=== PATIENT | female | born 1995 | race Caucasian/White ===

== ENCOUNTER 2025-02-08 07:13 | Emergency (ER) | payer OTHER ==
[~2025-02-08] VITALS: Ht 170.2 cm; Wt 61.2 kg
[~2025-02-08 07:13] MED LIST: DOXY100T2 PO; LEVO500T90 PO; NITR-84 PO
[2025-02-08 08:26] LABS: BASOPHILS % (AUTO) 0.2 % (0.0-2.0); EOSINOPHILS # (AUTO) 0.1 K/uL (0.0-0.7); EOSINOPHILS % (AUTO) 1.2 % (0.0-7.0); HEMATOCRIT 28.1 % (31.2-41.9); HEMOGLOBIN 9.8 g/dL (10.9-14.3); LYMPHOCYTES # (AUTO) 1.2 K/uL (0.8-4.8); LYMPHOCYTES % (AUTO) 17.8 % (20.5-51.5); MEAN CORPUSCULAR HEMOGLOBIN 29.5 uug (24.7-32.8); MEAN CORPUSCULAR HGB CONC 35 g/dL (32.3-35.6); MEAN CORPUSCULAR VOLUME 84.8 fL (75.5-95.3); MONOCYTES # (AUTO) 0.8 K/uL (0.1-1.30); MONOCYTES % (AUTO) 11.8 % (0.0-11.0); NEUTROPHILS # (AUTO) 4.7 K/uL (1.8-8.9); PLATELET COUNT (AUTO) 294 K/uL (179-408); RED BLOOD CELL COUNT(AUTO) 3.31 MIL/uL (3.63-4.92); RED CELL DISTRIBUTION WIDTH 12.6 % (12.3-17.7); WHITE BLOOD COUNT (AUTO) 6.8 K/uL (3.8-11.8)
[2025-02-08 08:27] LABS: DIFFERENTIAL COMMENT 1
[2025-02-08 08:31] LABS: *BILIRUBIN,URIN 1+ (NEGATIVE); *BLOOD, URINE 3+ (NEGATIVE); *COLOR,URINE YELLOW (YELLOW); *KETONES,URINE NEGATIVE (NEGATIVE); *PROTEIN,URINE TRACE (NEGATIVE); LEUKOCYTE ESTERASE ,URINE NEGATIVE (NEGATIVE); NITRITE, URINE NEGATIVE (NEGATIVE); PH,URINE 5.5 (5.0-8.0); UGLUCOSE NEGATIVE (NEGATIVE)
[2025-02-08 08:32] LABS: CALCIUM 9.1 mg/dL (8.5-10.1); CARBON DIOXIDE 32 mmol/L (21-32); CHLORIDE 102 mmol/L (98-107); CREATININE 0.5 mg/dL (0.6-1.3); GLUCOSE 91 mg/dL (74-106); POTASSIUM 3.6 mmol/L (3.5-5.1); SODIUM SERUM 141 mmol/L (136-145); UREA NITROGEN, BLOOD 9 mg/dL (7-18)
[2025-02-08 08:33] LABS: *CLARITY,URINE SLIGHTLY HAZY (CLEAR); *URINE HCG, QUAL NEGATIVE (NEGATIVE)
[2025-02-08 08:34] LABS: BACTERIA,URINE FEW /HPF (NONE SEEN); RBC,URINE 50-80 /HPF (0-3); SQUAMOUS EPITHELIAL CELL,UR FEW /HPF (NONE SEEN); URINE AMORPHOUS URATE FEW /HPF; WBC,URINE 0-3 /HPF (0-3)
[2025-02-08 08:37] LABS: ALANINE AMINOTRANSFERASE 15 U/L (14-59); ALBUMIN 3.2 g/dL (3.4-5.0); ALKALINE PHOSPHATASE 89 U/L (50-136); ASPARTATE AMINOTRANSFERASE 19 U/L (15-37); BILIRUBIN,DIRECT 0.1 mg/dL (0.0-0.2); BILIRUBIN,TOTAL 0.2 mg/dL (0.2-1.0); TOTAL PROTEIN, SERUM 7.4 g/dL (6.4-8.2)
[2025-02-08 08:50] LABS: *AMPHETAMINE, URINE POSITIVE (NEGATIVE); *BARBITURATE, URINE NEGATIVE (NEGATIVE); *BENZODIAZEPINE, URINE NEGATIVE (NEGATIVE); *CANNABINOID, URINE NEGATIVE (NEGATIVE); *COCCAINE, URINE NEGATIVE (NEGATIVE); *OPIATE, URINE NEGATIVE (NEGATIVE); *PHENCYCLIDINE SCREEN,URINE NEGATIVE (NEGATIVE); FENTANYL, URINE POSITIVE (NEGATIVE)
[2025-02-08 09:52] LABS: IRON, SERUM 34 ug/dL (50-175)
[2025-02-08] MEDS ORDERED: BISA10SU61 RC (10:36)
[2025-02-08] MEDS ORDERED: BISA-79 PO (10:36)
[2025-02-08] MEDS ORDERED: FERR325T23 PO (10:36)
[2025-02-08] MEDS ORDERED: MAGNESIUM HYDROXIDE 30 ML LIQUID UDC ONE (10:38)
[2025-02-08] MEDS ORDERED: FLEET ENEMA 133 ML BOTTLE RC ONE (10:38)
[2025-02-08] MEDS ORDERED: BISACODYL 5 MG TABLET.DR PO ONE (10:39)
[2025-02-08] MEDS: MAGNESIUM HYDROXIDE 30 ML LIQUID UDC PO ONE (10:42)
[2025-02-08] MEDS: FLEET ENEMA 133 ML BOTTLE RC ONE (10:42)
[2025-02-08] MEDS: BISACODYL 5 MG TABLET.DR PO ONE (10:42)
[2025-02-08 10:57] VITALS: BP 113/68; O2SAT 99
== END 2025-02-08 10:58 | disposition home or self-care (01) ==
LOC: ER 07:13
DX: K59.00 Constipation, unspecified (principal); K02.9 Dental caries, unspecified; D50.9 Iron deficiency anemia, unspecified; F15.10 Other stimulant abuse, uncomplicated; F17.210 Nicotine dependence, cigarettes, uncomplicated; Z87.09 Personal history of other diseases of the respiratory system
CPT/HCPCS: 36415; 74021; 83550; 84703; 85025; A4606; A4663

== ENCOUNTER 2025-02-13 03:46 | Emergency (ER) | payer OTHER ==
[~2025-02-13] VITALS: Ht 170.2 cm; Wt 61.2 kg
[~2025-02-13 03:46] MED LIST changes: +BISA-79 PO; +BISA10SU61 RC; +FERR325T23 PO
[2025-02-13 03:53] VITALS: O2SAT 99
[2025-02-13 05:15] LABS: *BILIRUBIN,URIN NEGATIVE (NEGATIVE); *CLARITY,URINE CLEAR (CLEAR); *COLOR,URINE YELLOW (YELLOW); *KETONES,URINE TRACE (NEGATIVE); *PROTEIN,URINE TRACE (NEGATIVE); *UROBILINOGEN,URINE 0.2 E.U./dl (NORMAL); LEUKOCYTE ESTERASE ,URINE NEGATIVE (NEGATIVE); NITRITE, URINE NEGATIVE (NEGATIVE); PH,URINE 5.5 (5.0-8.0); UGLUCOSE NEGATIVE (NEGATIVE)
[2025-02-13 05:17] LABS: *BLOOD, URINE TRACE (NEGATIVE); BACTERIA,URINE NONE SEEN /HPF (NONE SEEN); SQUAMOUS EPITHELIAL CELL,UR MODERATE /HPF (NONE SEEN); WBC,URINE 0-3 /HPF (0-3)
[2025-02-13 05:18] LABS: *URINE HCG, QUAL NEGATIVE (NEGATIVE); MUCUS,URINE FEW /LPF (0-FEW)
== END 2025-02-13 05:19 | disposition left against medical advice (07) ==
LOC: ER 03:48
DX: R10.31 Right lower quadrant pain (principal); R10.32 Left lower quadrant pain; F17.210 Nicotine dependence, cigarettes, uncomplicated; F15.10 Other stimulant abuse, uncomplicated; Z59.00 Homelessness unspecified; Z87.09 Personal history of other diseases of the respiratory system
CPT/HCPCS: 84703; A4606; A4663